=== PATIENT | male | born 1935 | race Caucasian/White ===

== ENCOUNTER 2020-06-08 11:27 | Emergency (ER) | payer MEDICARE, SELFPAY ==
[2020-06-08] VITALS (14 sets, daily range): BP systolic 98–134; BP diastolic 57–95; PULSE 64–85; RESP 16–30; TEMP 36.2–36.8; O2SAT 93–100
--- NOTE | ~2020-06-08 | XR_ITS ---
XR chest 1V portable 06/08/2020 12:17 Indication: Shortness of breath Procedure: AP portable chest Comparison: No prior studies for comparison. Findings: Cardiomegaly. Mild interstitial edema. Small right pleural effusion. No pneumothorax. Statu s post median sternotomy for CABG. Pacemaker leads in expected position. No pneumothorax. No acute os seous abnormality. Impression: 1: Cardiomegaly with mild interstitial edema. Reviewed, dictated and finalized at location B. RNAL SALESPERSON Impression: 1: Cardiomegaly with mild interstitial edema.
--- NOTE | 2020-06-08 11:32 | ECG_ITS ---
Measurements Intervals [place] Rate: 80 P: RI: 0 QRS: 174 QRSD: 157 T: -9 QT: 437 QTc: 507 Interpretive Statements ELECTRONIC VENTRICULAR PACEMAKER VENTRICULAR PREMATURE COMPLEX NO FURTHER INTERPRETATION IS POSSIBLE ATYPICAL ECG Electronically Signed On 06-08-2020 12:01:23 CELL TUBER MACHINE by Sanju Stover D.O.
--- NOTE | 2020-06-08 11:40 | ED.SOB ---
HPI - SOB/Dyspnea General Chief Complaint: Shortness of Breath/Dyspnea <Viktor Geronimo MD - Last Filed: 06/11/20 23:00> Stated Complaint: SOB, HYPOXIA <Viktor Geronimo MD - Last Filed: 06/11/20 23:00> Time Seen by Provider: 06/08/20 11:28 <Viktor Geronimo MD - Last Filed: 06/11/20 23:00> History of Present Illness HPI Narrative: 85 yo male w/ brought in by EMS for SOB. He was reportedly SOB today. Placed on 6 liters NRB and O2 saturation still only 90%. On arrival here RA saturation is 93%. The patient does say that he is SOB. Apparently started on treatment for pneumonia about 1 week ago. History severely limited by mental status. <Viktor Geronimo MD - Last Filed: 06/11/20 23:00> Related Data Allergies/Adverse Reactions: Allergies Allergy/AdvReac Type Severity Reaction Status Date / Time niacin Allergy Unknown Verified 06/08/20 11:37 <Viktor Geronimo MD - Last Filed: 06/11/20 23:00> Review of Systems Review of Systems: ROS unobtainable: Yes unobtainable due to mental status <Viktor Geronimo MD - Last Filed: 06/11/20 23:00> Cardiovascular: Cardiovascular: Denies chest pain <Viktor Geronimo MD - Last Filed: 06/11/20 23:00> Respiratory: Respiratory: Reports dyspnea <Viktor Geronimo MD - Last Filed: 06/11/20 23:00> Gastrointestinal: Gastrointestinal: Denies nausea and Denies vomiting <Viktor Geronimo MD - Last Filed: 06/11/20 23:00> Neurologic: Reports weakness <Viktor Geronimo MD - Last Filed: 06/11/20 23:00> [facility] Past Medical History Medical History: Medical History (Updated 06/10/20 @ 00:00 by Background Dakrissy) Congestive heart failure <Viktor Geronimo MD - Last Filed: 06/11/20 23:00> Surgical History Surgical History: Surgical History (Updated 06/08/20 @ 18:28 by Viktor Geronimo MD) S/P TAVR (transcatheter aortic valve replacement) <Viktor Geronimo MD - Last Filed: 06/11/20 23:00> Social History Social History: Social History (Updated 06/08/20 @ 18:29 by Viktor Geronimo MD) Living arrangements: skilled nursing <Viktor Geronimo MD - Last Filed: 06/11/20 23:00> Exam Const: General: alert and ill appearing acutely and chronically <Viktor Geronimo MD - Last Filed: 06/11/20 23:00> HENMT: Mouth: Yes dry mucous membranes <Viktor Geronimo MD - Last Filed: 06/11/20 23:00> Eyes: Pupils: Equal, round and reactive pupils present <Viktor Geronimo MD - Last Filed: 06/11/20 23:00> Resp: Effort & Inspection: tachypneic <Viktor Geronimo MD - Last Filed: 06/11/20 23:00> Auscultation: crackles <Viktor Geronimo MD - Last Filed: 06/11/20 23:00> Cardio: Rate: regular rate <Viktor Geronimo MD - Last Filed: 06/11/20 23:00> Rhythm: regular rhythm <Viktor Geronimo MD - Last Filed: 06/11/20 23:00> GI: GI Palp: Yes Soft to palpation and No Tenderness to palpation present (GI) <Viktor Geronimo MD - Last Filed: 06/11/20 23:00> Skin: General skin exam: normal color <Viktor Geronimo MD - Last Filed: 06/11/20 23:00> Neuro: General: moves all extremities and no focal motor deficits <Viktor Geronimo MD - Last Filed: 06/11/20 23:00> Psych: Other: FLat <Viktor Geronimo MD - Last Filed: 06/11/20 23:00> Course Course Emergency Course: Attempted admission to the hospitalist. She would not take the patient without cardiology involvement. On discussion with cardiology they gave no clear guidance about admission versus discharge, but said that if he needs to be admitted he should go back to [facility]. The legal administrative secretary has called [facility] multiple times without any response. <Viktor Geronimo MD - Last Filed: 06/11/20 23:00> Reevaluation(s) Reevaluation #1: Patient is resting in bed in no acute distress. HE states he has shortness of breath but denies chest pain. His oxygen saturation is 95% on room air. He is awaiting a covid test before h
[2020-06-08 11:56] LABS: Basophils Percent Auto 0.2 % (0.2-1.2); Eosinophils Absolute Auto 0.1 K/mm3 (0-0.3); Eosinophils Percent Auto 0.7 % (0-4.4); Hematocrit 45.2 % (42.0-52.0); Hemoglobin 14.5 g/dL (14.0-18.0); Immature Granulocyte Absolute 0.06 K/mm3 (0.00-0.031); Immature Granulocyte Percent A 0.6 % (0-0.5); Immature Platelet Fraction Pct 7.4 % (0.9-11.2); Lymphocytes Absolute Auto 1.29 K/mm3 (0.9-3.2); Lymphocytes Percent Auto 12.2 % (18.3-44.2); Mean Corpuscular HGB Conc 32.1 g/dl (32-36); Mean Corpuscular Hemoglobin 29.6 pg (26-34); Mean Corpuscular Volume 92.2 fl (80-100); Monocytes Absolute Auto 0.7 K/mm3 (0.1-0.6); Monocytes Percent Auto 6.2 % (2.6-8.5); Neutrophils Absolute Auto 8.5 K/mm3 (1.3-6.7); Neutrophils Percent Auto 80.1 % (45.5-73.1); Nucleated Red Blood Cells Absolute Auto 0.2 K/mm3 (0.0-0.012); Nucleated Red Blood Cells Perc 1.9 % (0.0-0.2); Platelet Count Result 92 k/mm3 (150-375); Red Cell Distribution Width 22.5 % (11.5-14.5); White Blood Count 10.6 K/mm3 (4.5-10.0)
[2020-06-08 12:11] LABS: Platelet Estimate Decreased (Adequate)
[2020-06-08 12:12] LABS: Burr Cells 2+ (NORMAL); Poikilocytosis 1+ (NORMAL)
[2020-06-08] MEDS: SODIUM CHLORIDE 0.9% IV 500 ML 999 ML IV CONT (12:16)
[2020-06-08 12:36] LABS: Anion Gap 10 mmol/L (8-16); Blood Urea Nitrogen 48 mg/dL (9-20); Calcium 8.7 mg/dL (8.4-10.2); Carbon Dioxide 25 mmol/L (22-30); Chloride 106 mmol/L (98-107); Estimated CRCL calculation 31 ml/min; Estimated Glomerular Filt Rate 48; Glucose 126 mg/dL (75-110); Potassium 4.5 mmol/L (3.4-5.0); Sodium 141 mmol/L (137-145)
[2020-06-08 12:37] LABS: INR 3.9; Partial Thromboplastin Time 39.2 SECONDS (22.3-36.8); Prothrombin Time 38.9 Seconds (11.1-14.7)
[2020-06-08 12:52] LABS: NT Pro B Type Natriuretic Pept 19600 PG/ML (5-100); Troponin I 0.178 ng/mL (0.000-0.034)
--- NOTE | 2020-06-08 14:04 | PC.NURSE ---
SPOKE WITH PT FAMILY, UPDATE GIVEN, NO FURTHER QUESTIONS.
[2020-06-08 16:43] LABS: Troponin I 0.201 ng/mL (0.000-0.034)
[2020-06-09] VITALS (68 sets, daily range): BP systolic 100–135; BP diastolic 37–102; PULSE 65–98; RESP 12–40; O2SAT 71–100
--- NOTE | 2020-06-09 | ECHO_ITS ---
Patient Info Name: Matty Bosch Age: 85 years : 1935 Gender: Male Ht: 66 in Wt: 155 lbs BSA: 1.82 m2 HR: 75 bpm BP: 109 / 92 mmHg Heart Rhythm: Paced Technical Quality: Good Exam Date: 06/09/2020 3:40 PM Exam Location: [facility] Patient Status: Emergency Admit Date: 06/08/2020 Staff Ordering Physician: Perri Lopez MD Solar Systems Designer: Nicanor Bassett RDCS Attending Provider: Cristóbal Sanon MD Referring Physician: Jessica DIAMOND; Exam Type: CA echo doppler color flow Study Info Indications I50.9 - Heart failure, unspecified Complete two-dimensional, color flow and Doppler transthoracic echocardiogram is performed. Strain analysis performed. History/Risk Factors Heart failure exacerbation; TAVR, SOB, BNP 19.6k. Summary 1. Left ventricular chamber dimension is severely enlarged. 2. Left ventricular systolic function is severely reduced, estimated at 20-25%. 3. Left atrial chamber dimension is severely enlarged. 4. Right atrial chamber dimension is severely enlarged. 5. The TAVR aortic valve leaflets are not well visualized. Two areas of mild dottie-valvular leak at the 2 o'clock and 6 o'clock positions in the SAX view. 6. There is severe mitral valve regurgitation. 7. Severe pulmonary hypertension, estimated pulmonary arterial systolic pressure is 63 mmHg. 8. Prosthetic valve gradients appear to be normal although possibly underestimated due to low cardiac output. Left Ventricle Left ventricular chamber dimension is severely enlarged. Left ventricular systolic function is severely reduced, estimated at 20-25%. There is mildly increased left ventricular wall thickness. Left ventricular septal wall motion is abnormal with septal motion related to pacing. The left ventricular diastolic function is grade III diastolic dysfunction. Global longitudinal strain is severely elevated at -5 %. Right Ventricle Right ventricular chamber dimension is normal. Right ventricular systolic function is reduced. Linear artifact in right ventricle suggestive of catheter(s), pacemaker lead(s), or ICD lead(s). Left Atria Left atrial chamber dimension is severely enlarged. Right Atria Right atrial chamber dimension is severely enlarged. Linear artifact in the right atrium suggestive of catheter(s), pacemaker lead(s), or ICD lead(s). Aortic Valve The TAVR aortic valve leaflets are not well visualized. Two areas of mild dottie-valvular leak at the 2 o'clock and 6 o'clock positions in the SAX view. Prosthetic valve gradients appear to be normal although possibly underestimated due to low cardiac output. Pulmonic Valve The pulmonic valve is normal. There is mild pulmonic regurgitation. Mitral Valve The mitral valve has thickened leaflets. There is severe mitral valve regurgitation. The mitral valve annulus is moderately calcified. Tricuspid Valve The tricuspid valve leaflets are normal. There is mild tricuspid valve regurgitation. Severe pulmonary hypertension, estimated pulmonary arterial systolic pressure is 63 mmHg. Pericardium/Pleural The pericardium appears normal. There is no pericardial effusion. Inferior Vena Cava Dilated inferior vena cava with <50% collapse upon inspiration consistent with significantly elevated right atrial pressure, 15 mmHg. Aorta The aortic root size at the sinus of Valsalva is normal. Left Ventricular Outflow Tract Name
--- NOTE | 2020-06-09 07:02 | PC.NURSE ---
CALLED [facility] AT [phone] WITH UPDATE ON PT STATUS AND PT'S ACCEPTANCE TO [facility] PENDING COVID-19 TEST RESULTS HERE. PT'S VERBALIZED UNDERSTANDING OF PLAN OF CARE FOR THIS PT.
[2020-06-09 08:12] LABS: Basophils Percent Auto 0.1 % (0.2-1.2); Eosinophils Absolute Auto 0.1 K/mm3 (0-0.3); Eosinophils Percent Auto 0.7 % (0-4.4); Hematocrit 44.9 % (42.0-52.0); Hemoglobin 14.1 g/dL (14.0-18.0); Immature Granulocyte Absolute 0.03 K/mm3 (0.00-0.031); Immature Granulocyte Percent A 0.3 % (0-0.5); Lymphocytes Absolute Auto 1.05 K/mm3 (0.9-3.2); Lymphocytes Percent Auto 10.7 % (18.3-44.2); Mean Corpuscular HGB Conc 31.4 g/dl (32-36); Mean Corpuscular Hemoglobin 29.1 pg (26-34); Mean Corpuscular Volume 92.8 fl (80-100); Monocytes Absolute Auto 0.5 K/mm3 (0.1-0.6); Monocytes Percent Auto 5.3 % (2.6-8.5); Neutrophils Absolute Auto 8.2 K/mm3 (1.3-6.7); Neutrophils Percent Auto 82.9 % (45.5-73.1); Nucleated Red Blood Cells Absolute Auto 0.1 K/mm3 (0.0-0.012); Nucleated Red Blood Cells Perc 0.9 % (0.0-0.2); Platelet Count Result 70 k/mm3 (150-375); Red Blood Count 4.84 M/mm3 (4.6-6.20); White Blood Count 9.8 K/mm3 (4.5-10.0)
[2020-06-09 08:24] LABS: Alanine Aminotransferase 88 U/L (4-50); Albumin Level 2.8 g/dL (3.5-5.1); Alkaline Phosphatase 176 U/L (38-126); Anion Gap 11 mmol/L (8-16); Aspartate Amino Transferase 132 U/L (17-59); Bilirubin,Total 2.5 mg/dL (0.2-1.3); Blood Urea Nitrogen 49 mg/dL (9-20); Calcium 8.4 mg/dL (8.4-10.2); Carbon Dioxide 22 mmol/L (22-30); Chloride 112 mmol/L (98-107); Estimated CRCL calculation 31 ml/min; Estimated Glomerular Filt Rate 48; Glucose 95 mg/dL (75-110); Potassium 3.6 mmol/L (3.4-5.0); Sodium 145 mmol/L (137-145)
--- NOTE | 2020-06-09 08:39 | PC.NURSE ---
DIETARY CONTACTED AT THIS TIME FOR BREAKFAST TRAY, PER ERP AMI CLEARED TO EAT.
[2020-06-09] MEDS: LEVOTHYROXINE SODIUM 100 MCG, LEVOTHYROXINE SODIUM 75 MCG 175 MCG PO (08:44)
[2020-06-09] MEDS: ISOSORBIDE MONONITRATE 60 MG TAB.ER.24H PO (08:44)
--- NOTE | 2020-06-09 08:55 | PC.NURSE ---
UPON ATTEMPTING TO MEDICATE PT, NO IV NOTED.
--- NOTE | 2020-06-09 08:56 | PC.NURSE ---
YAIR SIBLEY AT BEDSIDE ATTEMPTING IV ACCESS AT THIS TIME.
[2020-06-09] MEDS: FUROSEMIDE INJ 40 MG/4 ML VIAL IV PUSH (09:15)
[2020-06-09 09:40] LABS: Troponin I 0.183 ng/mL (0.000-0.034)
--- NOTE | 2020-06-09 15:35 | PC.NURSE ---
cardiology at bedside for echocardiogram.
--- NOTE | 2020-06-09 19:15 | PC.NURSE ---
REPORT TO YAIR OLMEDO AT THIS TIME SHE HAS ASSUMED PT CARE.
[2020-06-09 19:16] LABS: SARS-CoV-2 RNA PCR Negative
--- NOTE | 2020-06-09 21:40 | PC.NURSE ---
called [facility] to transfer patient to [facility]. [facility] is on their way
--- NOTE | 2020-06-09 22:30 | PC.NURSE ---
[facility] has arrived
== END 2020-06-09 22:38 | disposition short-term general hospital (02) ==
PROVIDERS: Emergency Medicine; General Practice; Emergency Provider Emergency Medicine; PCP Internal Medicine
DX: I50.9 Heart failure, unspecified (principal); Z20.828 Contact with and (suspected) exposure to other viral communicable diseases; Z95.2 Presence of prosthetic heart valve; I51.7 Cardiomegaly; Z95.0 Presence of cardiac pacemaker; I49.3 Ventricular premature depolarization
CPT/HCPCS: 36415; 71045; 80048; 80053; 83880; 84484; 85025; 85055; 85610; 85730; 87635; 93005; 93306; 96374; 99285; A9270; C9803; J1940; J7040; U0003